=== PATIENT | female | born 1975 | race Caucasian/White ===

== ENCOUNTER 2021-04-22 22:33 | Emergency (ER) | payer BC, MEDICAID ==
[2021-04-22] MEDS ORDERED: Benztropine 1 MG Tab PO STA (23:20)
[2021-04-22] MEDS ORDERED: Haloperidol Lactate 5 MG/ML SDV IM ONE (23:20)
--- NOTE | 2021-04-22 23:22 | EDM.PDOC ---
ED HPI GENERAL MEDICAL PROBLEM - General Chief Complaint: Chest Pain Stated Complaint: CHEST PAIN Time Seen by Provider: 04/22/21 22:58 Source of Information: Reports: Patient History Limitations: Reports: No Limitations - History of Present Illness INITIAL COMMENTS - FREE TEXT/NARRATIVE: Ms. Sykes is a pleasant 45-year-old woman who now presents the ED stating that she developed right jaw pain radiating down the right side of her chest behind her right breast, and to between her scapulae, along with a headache felt behind her right eye, and tingling and numbness to the underside of her right jaw, on and off, since 04/20/2021. She describes the pain to her right breast is burning, and the pain between her scapula is stabbing. She states that her symptoms are more severe tonight. The only modifier she has identified is that her pain is worse on the right side of her chest when she swallows. She also reports having blurry vision since yesterday, 04/21/2021. No associated nausea, dyspnea, diaphoresis, or sense of impending doom. No prior similar symptoms. She has not taken any [id number] medications or home remedies to address her symptoms. Of note, the patient has a history of untreated migraines. Here in the ED, the patient's initial BP is found to be modestly elevated at 161/103, otherwise, she is hemodynamically stable, afebrile, saturating 98% on room air. She appears to be comfortable, in no acute distress. Prior to Friday, the patient denies having a recent fever, chills, sore throat, ear pain, nasal or sinus congestion, cough, dyspnea, chest pain, palpitations, nausea, vomiting, constipation, diarrhea, abdominal pain, urinary symptoms, recent weight gain or weight loss, recent bloody bowel movements or black bowel movements, recent joint aches, headaches, or rashes. The patient does not have a PCP. Her [employer] Oper[employer] is in [place]. She has received 2 COVID vaccinations, although no influenza vaccination this season. Chest Pain Score (Numeric/FACES): 6 - Related Data Allergies Allergy/AdvReac Type Severity Reaction Status Date / Time Sulfa (Sulfonamide Allergy Rash Verified 04/22/21 22:52 Antibiotics) Home Meds: Home Meds Sertraline [Zoloft] 100 mg PO BEDTIME 04/22/21 [History] Past Medical History Neurological History: Reports: Migraines (untreated) Psychiatric History: Reports: Anxiety Endocrine/Metabolic History: Reports: Obesity/BMI 30+ - Past Surgical History HEENT Surgical History: Reports: Oral Surgery (dental extractions) GI Surgical History: Reports: Appendectomy Social & Family History - Tobacco Use Tobacco Use Status *Q: Never Tobacco User - Caffeine Use Caffeine Use: Reports: Soda - Alcohol Use Alcohol Use History: No - Recreational Drug Use Recreational Drug Use: No - Living Situation & Occupation Living situation: Reports: , with Family (2 kids) 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 ED EXAM, GENERAL - Physical Exam Exam: See Below Exam Limited By: No Limitations General Appearance: Alert, WD/WN, No Apparent Distress Eye Exam: Bilateral Eye: EOMI, Normal Inspection, PERRL Ears: Normal External Exam, Normal Canal, Hearing Grossly Normal, Normal TMs Nose: Normal Inspection, Normal Mucosa, No Blood Throat/Mouth: Normal Inspection, Normal Lips, Normal Teeth, Normal Gums, Normal Oropharynx, Normal Voice, No Airway Compromise Head: Atraumatic, Normocephalic Neck: Normal Inspection, Supple, Non-Tender, Full Range of Motion. No: Carotid Bruit, Lymphadenopathy (L), Lymphadenopathy (R) Respiratory/Chest: No Respiratory Distress, Lungs Clear, Normal Breath Sounds, No Accessory Muscle Use, Chest Non-Tender (including the anterior right) Cardiovascular: Normal Peripheral Pulses, Regular Rate, Rhythm, No Edema, No G allop, No JVD, No Murmur, No Rub Peripheral Pulses: 3+: Radial (L), Radial (R) GI/Abdominal: Normal Bowel Sounds, Soft, Non-Tender, No Organomegaly, No Distention, No Abnormal Bruit, No Mass Back Exam: Normal Inspection, Full Range of Motion, NT Extremities: Normal Inspection, Normal Range of Motion, No Pedal Edema, Normal Capillary Refill Neurological: Alert, Oriented, CN II-XII Intact, Normal Cognition, No Motor/Sensory Deficits Psychiatric: Normal Affect Skin Exam: Warm, Dry, Intact, Normal Color, No Rash #1 Interpretation EKG Date: 04/22/21 Time: 22:48 Rhythm: NSR Rate (Beats/Min): 64 [place]: Normal P-Wave: Present QRS: Normal ST-T: Normal QT: Normal Comparison: NA - No Prior EKG Course - Vital Signs Last Recorded V/S: Last Vital Signs Temp 36.1 C 04/22/21 22:39 Pulse 69 04/22/21 22:39 Resp 14 04/22/21 22:39 BP 161/103 H 04/22/21 22:39 Pulse Ox 98 04/22/21 22:39 - Orders/Labs/Meds Orders: Active Orders 24 hr Category Date Time Status Chest 2V [CR] Stat Exams 04/22/21 23:17 Taken Head wo Cont [CT] Stat Exams 04/22/21 23:19 Taken Labs: Laboratory Tests 04/22/21 04/22/21 04/22/21 Range/Units 23:27 23:27 23:27 WBC 8.11 (3.98-10.04) K/mm3 RBC 4.66 (3.98-5.22) M/mm3 Hgb 14.1 (11.2-15.7) gm/dl Hct 41.3 (34.1-44.9) % MCV 88.6 (79.4-94.8) fl MCH 30.3 (25.6-32.2) pg MCHC 34.1 (32.2-35.5) g/dl RDW Std Deviation 42.3 (36.4-46.3) fL Plt Count 252 (182-369) K/mm3 MPV 10.4 (9.4-12.3) fl Neutrophils % (Manual) 63 H (40-60) % Band Neutrophils % 0 (0-10) % Lymphocytes % (Manual) 30 (20-40) % Atypical Lymphs % 0 % Monocytes % (Manual) 7 (2-10) % Eosinophils % (Manual) 0 L (0.7-5.8) % Basophils % (Manual) 0 L (0.1-1.2) Platelet Estimate Adequate RBC Morph Comment Normal PT 10.1 (9.7-12.0) SECONDS INR < 0.93 APTT 25.3 (21.7-31.4) SECONDS D-Dimer, Quantitative 0.21 (0.19-0.50) mg/L Sodium 138 (136-145) mEq/L Potassium 4.5 (3.5-5.1) mEq/L Chloride 105 (98-107) mEq/L Carbon Dioxide 24 (21-32) mEq/L Anion Gap 13.5 (5-15) BUN 10 (7-18) mg/dL Creatinine 0.6 (0.55-1.02) mg/dL Est Cr Clr Drug Dosing 100.01 mL/min Estimated GFR (MDRD) > 60 (>60) mL/min BUN/Creatinine Ratio 16.7 (14-18) Glucose 93 (70-99) mg/dL Calcium 8.5 (8.5-10.1) mg/dL Total Bilirubin 0.3 (0.2-1.0) mg/dL AST 25 (15-37) U/L ALT 20 (14-59) U/L Alkaline Phosphatase 60 (46-116) U/L Troponin I < 0.017 (0.00-0.056) ng/mL Total Protein 6.4 (6.4-8.2) g/dl Albumin 3.2 L (3.4-5.0) g/dl Globulin 3.2 gm/dL Albumin/Globulin Ratio 1.0 (1-2) Meds: Medications Discontinued Medications Generic Name Dose Route Start Last Admin Trade Name Freq PRN Reason Stop Dose Admin Benztropine Mesylate 1 mg 04/22/21 23:20 04/22/21 23:29 Benztropine 1 Mg Tab PO 04/22/21 23:21 1 mg ONETIME STA Administration Haloperidol Lactate 5 mg 04/22/21 23:20 04/22/21 23:28 Haloperidol Lactate 5 Mg/Ml Sdv IM 04/22/21 23:21 5 mg ONETIME ONE Administration - Re-Assessments/Exams Free Text/Narrative Re-Assessment/Exam: 04/22/21 23:20 An ECG, obtained at triage, is completely normal. The patient's physical exam, including a thorough neurologic examination, is completely normal. I have ordered a work-up that includes several blood tests, a chest x-ray, and a CT of the head without contrast, however, I suspect that she is suffering from a migraine, therefore she will be treated with IM Haldol and oral Cogentin, to see if that modifies her symptoms. 04/23/21 00:16 Two-view chest radiograph appears to be grossly normal. The cardiac silhouette is within normal limits. No pulmonary vascular congestion. No pleural effusions. No focal infiltrate. No pneumothorax. Formal read per the Radiologist pending. The patient's CBC is unremarkable. Her CMP is unremarkable. Her troponin is undetectably low. Her D-dimer is within normal limits at 0.21. Her coags are within normal limits. CT of the head without contrast is read by [facility] as "No acute intracranial abnormality." 04/23/21 00:19 Test results discussed with the patient. As above, today's work-up is completely unremarkable. She states that she did "not really" get much improvement in her symptoms following the IM Haldol, therefore I cannot say with certainty that her symptoms are due to a migraine. I will discharge her home with a referral to the clinic to establish a PCP. Departure - Departure Time of Disposition: 00:20 Disposition: Home, Self-Care 01 Condition: Good Clinical Impression: Headache, Jaw pain, Chest pain - Discharge Information *PRESCRIPTION DRUG MONITORING PROGRAM REVIEWED*: Not Applicable *COPY OF PRESCRIPTION DRUG MONITORING REPORT IN PATIENT KIMBERLY: Not Applicable Instructions: Nonspecific Chest Pain, Adult, [id number], General Headache Without Cause, [id number] Referrals: Jolanta Aguilera NP [Nurse Practitioner] - Forms: ED Department Discharge Additional Instructions: You were seen in the emergency room after developing a headache, right jaw and right breast pain radiating through to your shoulder blades, along with tingling and numbness on and off to your lower right jaw on Friday, followed by blurry vision on Friday. Work-up in the ER included several blood tests, a chest x-ray, CT of your head, and an ECG. Your entire work-up was unremarkable, and does not explain the cause of your symptoms. While there are many features to your presentation consistent with a migraine, you did not have significant relief following an injection with an anti-migraine medicine, therefore the cause of your symptoms cannot be determined at this time. We recommend you take [id number] ibuprofen as needed for discomfort. If your symptoms persist, please follow-up with Jolanta Aguilera NP, or one of the other providers in the clinic, to establish a PCP, and for further evaluation. If any other problems, please do not hesitate to return to the ER. Sepsis Event Note (ED) - Evaluation Sepsis Screening Result: No Definite Risk - Focused Exam Vital Signs: Vital Signs Temp Pulse Resp BP Pulse Ox 04/22/21 22:39 36.1 C 69 14 161/103 H 98 - My Orders Last 24 Hours: My Active Orders 04/22/21 23:17 Chest 2V [CR] Stat 04/22/21 23:19 Head wo Cont [CT] Stat - Assessment/Plan Last 24 Hours: My Active Orders 04/22/21 23:17 Chest 2V [CR] Stat 04/22/21 23:19 Head wo Cont [CT] Stat
--- NOTE | 2021-04-23 07:12 | CR ---
Chest: 2 views of the chest were obtained. Comparison: No prior chest imaging is available. Heart size and mediastinum are normal. Lungs are clear with no acute parenchymal change. Bony structures show nothing acute. Impression: 1. Nothing acute is seen on 2 view chest x-ray. Diagnostic code #1
--- NOTE | 2021-04-23 07:12 | CT ---
Head CT Technique: Multiple axial sections through the brain were obtained. Intravenous contrast was not utilized. Reconstructed coronal and sagittal images were obtained. Comparison: No prior intracranial imaging is available. Findings: Ventricles along with basal cisterns and sulci over the convexities are within normal limits for the patient's age. No abnormal parenchymal densities are seen. No evidence of intracranial hemorrhage is seen. No midline shift or mass-effect is seen. Bone window settings were reviewed. Visualized mastoid sinuses and paranasal sinuses show nothing acute. No acute calvarial abnormality is seen. Impression: 1. Nothing acute is seen on noncontrast head CT study. Diagnostic code #1 I agree with preliminary report from [facility], finalized on 04/23/21, 1:04 AM [employer], code 1
== END 2021-04-23 00:44 | disposition home or self-care (01) ==
LOC: JD.ED 22:33
DX: R68.84 Jaw pain (principal); R51.9 Headache, unspecified; R07.9 Chest pain, unspecified; E66.9 Obesity, unspecified; Z68.37 Body mass index [BMI] 37.0-37.9, adult; Z88.2 Allergy status to sulfonamides
CPT/HCPCS: 36415; 70450; 71046; 80053; 84484; 85007; 85027; 85379; 85610; 85730; 93005; 96372; 99285; A9270; J1630

== ENCOUNTER 2021-11-28 11:39 | Emergency (ER) | payer BC ==
[2021-11-28 13:58] LABS: ESTIMATED GFR 93 mL/min (>60)
== END 2021-11-28 15:34 | disposition home or self-care (01) ==
LOC: JD.ED 11:39
DX: U07.1 COVID-19 (principal); F41.9 Anxiety disorder, unspecified; E66.9 Obesity, unspecified; Z68.39 Body mass index [BMI] 39.0-39.9, adult; Z79.899 Other long term (current) drug therapy; Z88.2 Allergy status to sulfonamides
CPT/HCPCS: 36415; 80053; 83735; 84443; 85025; 86140; 99282; 99283; U0002

== ENCOUNTER 2021-12-12 15:50 | Emergency (ER) | payer BC ==
[2021-12-12] MEDS ORDERED: Sodium Chloride 0.9% 10 ML Syringe FLUSH PRN (16:01)
[2021-12-12] MEDS ORDERED: Potassium Chloride 20 MEQ Tab.ER PO ONE (16:53)
== END 2021-12-12 17:37 | disposition home or self-care (01) ==
LOC: JD.ED 15:50
DX: E87.6 Hypokalemia (principal); R03.0 Elevated blood-pressure reading, without diagnosis of hypertension; R06.00 Dyspnea, unspecified; E66.9 Obesity, unspecified; Z68.36 Body mass index [BMI] 36.0-36.9, adult; Z88.2 Allergy status to sulfonamides; Z79.899 Other long term (current) drug therapy; Z86.16 Personal history of COVID-19; Z90.49 Acquired absence of other specified parts of digestive tract
CPT/HCPCS: 36415; 71045; 80053; 83735; 83880; 84484; 85025; 85379; 85610; 85730; 93005; 99285; A9270; J3490

== ENCOUNTER 2021-12-24 08:53 | Emergency (ER) | payer BC | END 2021-12-24 12:35 | disposition home or self-care (01) | LOC: JD.ED 08:53 | DX: R00.2 Palpitations (principal); E66.9 Obesity, unspecified; Z68.38 Body mass index [BMI] 38.0-38.9, adult; Z88.2 Allergy status to sulfonamides; Z86.16 Personal history of COVID-19 | CPT/HCPCS: 36415; 80053; 83735; 84484; 85025; 85379; 85610; 85730; 93005; 99285 ==

== ENCOUNTER 2022-01-16 19:35 | Emergency (ER) | payer BC ==
[2022-01-16] MEDS ORDERED: Sodium Chloride 0.9% 10 ML Syringe FLUSH PRN (19:51)
[2022-01-16] MEDS ORDERED: Aspirin 81 MG Tab.Chew PO ONE (20:12)
[2022-01-16 20:27] LABS: ESTIMATED GFR 81 mL/min (>60)
[2022-01-16] MEDS ORDERED: Ketorolac 30 MG/ML SDV IVPUSH ONE (20:40)
== END 2022-01-16 22:29 | disposition home or self-care (01) ==
LOC: JD.ED 19:35
DX: R07.89 Other chest pain (principal); E66.9 Obesity, unspecified; Z68.38 Body mass index [BMI] 38.0-38.9, adult; Z88.2 Allergy status to sulfonamides; Z79.899 Other long term (current) drug therapy; Z86.16 Personal history of COVID-19; Z90.49 Acquired absence of other specified parts of digestive tract
CPT/HCPCS: 36415; 70450; 71046; 80053; 83735; 84484; 85025; 85379; 86140; 93005; 96374; 99285; A9270; J1885; J3490

== ENCOUNTER 2022-05-19 16:39 | Emergency (ER) | payer BC, MEDICAID ==
[2022-05-19 18:27] LABS: CORONAVIRUS COVID-19 NAA NEGATIVE (NEGATIVE)
[2022-05-19] MEDS ORDERED: Oseltamivir 75 MG Cap PO ONE (18:30)
== END 2022-05-19 18:57 | disposition home or self-care (01) ==
LOC: JD.ED 16:39
DX: B34.9 Viral infection, unspecified (principal); I10 Essential (primary) hypertension; F41.9 Anxiety disorder, unspecified; E66.9 Obesity, unspecified; Z68.37 Body mass index [BMI] 37.0-37.9, adult; Z20.822 Contact with and (suspected) exposure to COVID-19; Z79.899 Other long term (current) drug therapy; Z88.2 Allergy status to sulfonamides
CPT/HCPCS: 0241U; 71045; 71045-26; 99283